=== PATIENT | male | born 1990 | race African-American/Black ===

== ENCOUNTER 2018-05-19 15:25 | Emergency (ER) | payer OTHER ==
[~2018-05-19] VITALS: Ht 193 cm; Wt 86.2 kg
[2018-05-19] MEDS ORDERED: NEURONTIN100 MG PO (15:34)
[2018-05-19 15:49] LABS: URINE BILIRUBIN NEGATIVE (Negative); URINE BLOOD TRACE (Negative); URINE CLARITY CLEAR; URINE COLOR YELLOW; URINE GLUCOSE-RANDOM* NEGATIVE (Negative); URINE KETONES NEGATIVE (Negative); URINE LEUKOCYTES-REFLEX NEGATIVE (Negative); URINE NITRITE-REFLEX NEGATIVE (Negative); URINE PROTEIN (DIPSTICK) NEGATIVE (Negative); URINE UROBILINOGEN 0.2 E.U./dl (0.2-1.0)
[2018-05-19 17:37] VITALS: BP 167/109
== END 2018-05-19 17:10 | disposition home or self-care (01) ==
LOC: ER 15:25
PROVIDERS: Physician Assistant
DX: Z20.2 Contact with and (suspected) exposure to infections with a predominantly sexual mode of transmission (principal); I10 Essential (primary) hypertension; F17.210 Nicotine dependence, cigarettes, uncomplicated

== ENCOUNTER 2019-07-26 03:46 | Emergency (ER) | payer OTHER ==
[~2019-07-26] VITALS: Ht 193 cm; Wt 86.2 kg
[~2019-07-26 03:46] MED LIST: NEURONTIN100 MG PO
[2019-07-26 05:13] LABS: CALCIUM 9.8 mg/dL (8.5-10.1); CREATININE 1.1 mg/dL (0.7-1.3); POTASSIUM 4.3 mmol/L (3.5-5.1)
[2019-07-26 05:17] LABS: HEMATOCRIT 43.4 % (42.0-52.0); HEMOGLOBIN 14.3 gm/dL (14.0-18.0); MCHC 32.9 g/dL (28.0-37.0); MCV 100.3 fL (80.0-100.0); PLATELET COUNT 368 thou/uL (150-400); RBC 4.33 mil/uL (4.50-6.00); RDW 13.3 % (10.5-14.5); WBC 5.5 thou/uL (4.0-11.0)
[2019-07-26] MEDS ORDERED: AUGMENTIN 875-1 EACH PO (08:40)
[2019-07-26 09:06] LABS: ABSOLUTE NEUTROPHILS 1.6 thou/uL (1.4-8.2); PLATELET ESTIMATE NORMAL
[2019-07-26 09:18] VITALS: BP 176/125
== END 2019-07-26 09:26 | disposition home or self-care (01) ==
LOC: ER 03:46
PROVIDERS: Emergency Medicine
DX: K04.7 Periapical abscess without sinus (principal); R51 Headache; I10 Essential (primary) hypertension; F17.210 Nicotine dependence, cigarettes, uncomplicated

== ENCOUNTER 2020-04-13 21:39 | Emergency (ER) | payer BC ==
[~2020-04-13] VITALS: Ht 193 cm; Wt 86.2 kg
[~2020-04-13 21:39] MED LIST changes: +AUGMENTIN 875-1 EACH PO
[2020-04-13 21:53] VITALS: BP 159/102
[2020-04-14 00:27] LABS: HEMATOCRIT 30.2 % (42.0-52.0); HEMOGLOBIN 10.3 gm/dL (14.0-18.0); MCH 33.7 pg (26.0-34.0); MCHC 34.1 g/dL (28.0-37.0); MCV 98.9 fL (80.0-100.0); PLATELET COUNT 521 thou/uL (150-400); RBC 3.05 mil/uL (4.50-6.00); RDW 13.2 % (10.5-14.5); WBC 10.7 thou/uL (4.0-11.0)
[2020-04-14 00:31] LABS: CALCIUM 8.6 mg/dL (8.5-10.1); POTASSIUM 3.7 mmol/L (3.5-5.1)
[2020-04-14 00:39] LABS: ALBUMIN 3.3 g/dL (3.4-5.0); TOTAL BILIRUBIN 0.2 mg/dL (0.2-1.0); TOTAL PROTEIN 7.4 g/dL (6.4-8.2)
[2020-04-14 01:35] LABS: ABSOLUTE NEUTROPHILS 5.6 thou/uL (1.4-8.2)
[2020-04-14 01:36] LABS: LARGE PLATELETS SEVERAL; PLATELET ESTIMATE INCREASED
[2020-04-14 04:14] VITALS: BP 138/78
[2020-04-14 04:18] VITALS: BP 138/78
--- NOTE | 2020-04-14 04:23 | NUR ---
PATIENT REFUSED ADMISSION/CARE/TREATMENT FOR KNOWN LEG ABSCESS (INCUDING SURGICAL INTERVENTION AND ANTIBIOTICS). REFUSED TO SIGN AMA FORM OUTLINING THE RISK OF DETERIORATION OF CONDITION, THREAT OF SEPSIS, THREAT OF LOSS OF LIMB AND DETERIORIATION UP TO AND INCLUDING . PATIENT BECAME ANGRY AND REFUSED TO STAY WHEN VISITING HOURS/POLICY WAS EXPLAINED. PATIENT DIDN'T CARE FOR THE STRICT VISITING HOURS LIMITATION DURING A PANDEMIC AND WOULD NOT STAY FOR ANY REASON IF HIS SIGNIFICANT OTHER COULD NOT STAY AT HIS BEDSIDE 24 HOURS A DAY DURING HIS ADMISSION. HOSPITALIST NURSE PRACTITIONER ADULT, ER PHYSICIAN AND NURSING DENITRATOR OPERATOR MADE AWARE OF DECISION TO LEAVE AMA
== END 2020-04-14 04:25 | disposition left against medical advice (07) ==
LOC: ER 21:39 → EROBS 04-14 02:53 → ER 04-14 04:25
PROVIDERS: Emergency Medicine
DX: L02.415 Cutaneous abscess of right lower limb (principal); M86.8X6 Other osteomyelitis, lower leg; I10 Essential (primary) hypertension; F17.210 Nicotine dependence, cigarettes, uncomplicated